=== PATIENT | female | born 2000 | race Caucasian/White ===

== ENCOUNTER → 2019-07-24 | Outpatient (CLI) | payer BC | LOC: COL.LAB 11:01 | DX: Z20.818 Contact with and (suspected) exposure to other bacterial communicable diseases (principal) ==

== ENCOUNTER → 2024-07-19 | Outpatient (CLI) | payer BC ==
[~2024-07-19] MED LIST: ASPIRIN 81M81 MG/TA2 PO; CLARITIN 1010 MG/TAB PO; [UNRECOGNIZED DRUG - OTHER]
== END ==
LOC: COL.RAD 10:34
DX: N91.2 Amenorrhea, unspecified (principal); N94.10 Unspecified dyspareunia